=== PATIENT | female | born 1945 | race African-American/Black ===

== ENCOUNTER 2019-08-24 16:08 | Inpatient (IN) | payer MEDICARE, MEDICAID ==
[~2019-08-24] VITALS: Ht 162.6 cm; Wt 10.0 kg
[~2019-08-24 16:08] MED LIST: AMLO2.5T45 PO; ASPI-1497 PO; DOXA4TAB3 PO; FOLI-43 PO; GLIM4TAB36 PO; ISOS30TA6 PO; METO-539 PO; OMEP20TA2 PO; PLAVIX PO; RANO10003 PO
[2019-08-24] MEDS ORDERED: ONDANSETRON HCL 4MG/2ML INJ IV STA ×2 (18:34→22:32)
[2019-08-24] MEDS ORDERED: SODIUM CHLORIDE 0.9% 1,000 ML IV ONE ×3 (18:34→23:31)
[2019-08-24] MEDS ORDERED: MORPHINE SULFATE 4 MG/ML CPJ (NOT FOR IM USE) IV STA ×2 (18:34→22:32)
[2019-08-24 19:29] LABS: BASOPHILS % 0.5 % (0.0-2.0); EOSINOPHILS % 0.6 % (0.0-5.0); HEMATOCRIT. 37.4 % (36.0-48.0); HEMOGLOBIN. 12.4 g/dL (12.0-16.0); MEAN CORPUSCULAR HEMOGLOBIN 33.3 pg (28.0-32.0); MEAN CORPUSCULAR VOLUME 100.7 fL (81.0-99.0); MEAN PLATELET VOLUME 7.9 fl (7.4-10.4); MONOCYTES % 11.6 % (2.0-8.0); NEUTROPHILS % 62.3 % (40.0-76.0); PLATELET 232 x1000/uL (130-400); RED BLOOD CELL COUNT 3.72 mill/uL (4.2-5.4); RED CELL DISTRIBUTION WIDTH 14.7 % (11.6-14.6)
[2019-08-24 19:35] LABS: CHLORIDE 101 mEq/L (98-107)
[2019-08-24 19:37] LABS: INR 0.9; PARTIAL THROMBOPLASTIN TIME 28.7 sec (23.4-31.0); PROTHROMBIN TIME 9.7 sec (9.6-11.0)
[2019-08-24] MEDS ORDERED: IOHEXOL-350 100 ML BOTTLE ONE (21:36)
[2019-08-24] MEDS ORDERED: HYDROCODONE/ACETAMINOPHEN 5/325MG TABLET PO ONE (23:45)
[2019-08-25] MEDS: HYDROCODONE/ACETAMINOPHEN 5/325MG TABLET PO PRN (06:49)
[2019-08-25] MEDS ORDERED: DIPHENHYDRAMINE 50MG/ML VIAL IV PRN (07:45)
[2019-08-25] MEDS ORDERED: ACETAMINOPHEN 325MG TABLET PO PRN (07:45)
[2019-08-25] MEDS ORDERED: ONDANSETRON HCL 4MG/2ML INJ IV PRN (07:45)
[2019-08-25 08:00] VITALS: BP 156/68
[2019-08-25] MEDS: CLONIDINE 0.1MG TABLET PO PRN (08:58)
[2019-08-25] MEDS: ENOXAPARIN 40MG/0.4ML SYR SUBCUT SCH (08:58)
[2019-08-25 10:42] LABS: PHOSPHORUS 3.4 mg/dL (2.5-4.9)
[2019-08-25 18:44] VITALS: BP 145/78
[2019-08-25 20:00] VITALS: BP 179/71
[2019-08-25] MEDS ORDERED: DEXTROSE 50% WATER 50ML SYRINGE IV PRN (20:15)
[2019-08-25] MEDS: INSULIN LISPRO 100 UNITS/ML SUBCUT SCH (21:00)
[2019-08-25] MEDS: BLOOD SUGAR DIAGNOSTIC STRIP TEST SCH (21:14)
[2019-08-25] MEDS ORDERED: NON FORMULARY PATIENT HOME MED XX SCH (23:15)
[2019-08-26] VITALS: BP 149/52
[2019-08-26] MEDS: HYDROCODONE/ACETAMINOPHEN 5/325MG TABLET PO PRN ×2 (00:11→12:43)
[2019-08-26 04:00] VITALS: BP 134/62
[2019-08-26] MEDS: BLOOD SUGAR DIAGNOSTIC STRIP TEST SCH ×3 (05:41→17:40)
[2019-08-26 06:59] LABS: BASOPHILS % 0.2 % (0.0-2.0); EOSINOPHILS % 1.5 % (0.0-5.0); HEMATOCRIT. 30.2 % (36.0-48.0); HEMOGLOBIN. 10.2 g/dL (12.0-16.0); LYMPHOCYTES % 25.1 % (20.0-50.0); MEAN CORPUSCULAR HEMOGLOBIN 33.8 pg (28.0-32.0); MEAN CORPUSCULAR VOLUME 100.5 fL (81.0-99.0); MEAN PLATELET VOLUME 8.1 fl (7.4-10.4); MONOCYTES % 13.3 % (2.0-8.0); NEUTROPHILS % 59.9 % (40.0-76.0); PLATELET 215 x1000/uL (130-400); RED BLOOD CELL COUNT 3.01 mill/uL (4.2-5.4); RED CELL DISTRIBUTION WIDTH 14.5 % (11.6-14.6)
[2019-08-26 08:00] VITALS: BP 172/72
[2019-08-26 08:06] LABS: CHLORIDE 107 mEq/L (98-107)
[2019-08-26] MEDS: INSULIN LISPRO 100 UNITS/ML SUBCUT SCH ×2 (08:10→13:10)
[2019-08-26 08:16] LABS: LDL CHOLESTEROL 93 mg/dL (5-100)
[2019-08-26 08:17] LABS: HDL CHOLESTEROL 70 mg/dL (40-59)
[2019-08-26] MEDS: CLONIDINE 0.1MG TABLET PO PRN ×2 (10:04→17:33)
[2019-08-26] MEDS: ENOXAPARIN 40MG/0.4ML SYR SUBCUT SCH (10:05)
[2019-08-26 12:00] VITALS: BP 179/81
[2019-08-26] MEDS ORDERED: OMEPRAZOLE 20MG CAPSULE EXTENDED RELEASE PO SCH (17:40)
[2019-08-26] MEDS ORDERED: GLIMEPIRIDE 2MG TABLET PO SCH (17:40)
[2019-08-26 17:42] VITALS: BP 183/71
[2019-08-26] MEDS ORDERED: ASPIRIN 81MG EC TABLET PO SCH (18:10)
[2019-08-26] MEDS ORDERED: ISOSORBIDE MONONITRATE 30MG TABLET SR 24HR PO SCH (21:00)
[2019-08-26] MEDS ORDERED: RANOLAZINE 500 MG TAB.SR.12H PO SCH (21:00)
[2019-08-26] MEDS ORDERED: AMLODIPINE 2.5MG TABLET PO SCH (21:00)
[2019-08-26] MEDS ORDERED: DOXAZOSIN MESYLATE 4MG TABLET PO SCH (21:00)
[2019-08-27] MEDS ORDERED: FOLIC ACID 1MG TABLET PO SCH (09:00)
[2019-08-27] MEDS ORDERED: CLOPIDOGREL 75MG TABLET PO SCH (09:00)
[2019-08-27] MEDS ORDERED: METOPROLOL TARTRATE 50MG TABLET PO SCH (09:00)
== END 2019-08-26 18:29 | disposition home or self-care (01) | DRG 300 ==
LOC: ER 16:08 → ENRESERV 08-25 15:41 → 7WST 08-25 17:21
PROVIDERS: ADMIT Internal Medicine; ATTEND Internal Medicine
DX: E11.51 Type 2 diabetes mellitus with diabetic peripheral angiopathy without gangrene (principal); I13.0 Hypertensive heart and chronic kidney disease with heart failure and stage 1 through stage 4 chronic kidney disease, or unspecified chronic kidney disease; L97.919 Non-pressure chronic ulcer of unspecified part of right lower leg with unspecified severity; N17.9 Acute kidney failure, unspecified; E11.22 Type 2 diabetes mellitus with diabetic chronic kidney disease; E11.622 Type 2 diabetes mellitus with other skin ulcer; E78.5 Hyperlipidemia, unspecified; I25.10 Atherosclerotic heart disease of native coronary artery without angina pectoris; I50.9 Heart failure, unspecified; N18.9 Chronic kidney disease, unspecified; Z79.4 Long term (current) use of insulin; Z79.82 Long term (current) use of aspirin; Z79.899 Other long term (current) drug therapy; Z95.1 Presence of aortocoronary bypass graft; Z98.61 Coronary angioplasty status; Z88.8 Allergy status to other drugs, medicaments and biological substances; Z91.012 Allergy to eggs; Z91.040 Latex allergy status; Z90.49 Acquired absence of other specified parts of digestive tract; Z98.49 Cataract extraction status, unspecified eye
CPT/HCPCS: 36415; 71045; 75635; 80053; 80061; 82962; 83735; 83880; 84100; 84443; 84484; 85025; 86850; 86900; 93005; 93970; 96361; 96374; 96375; 99285; J1650; J1815; J2270; J2405; J7030; Q9967